=== PATIENT | female | born 1985 | race Caucasian/White ===

== ENCOUNTER 2018-09-17 05:15 | Inpatient (IN) | payer MEDICAID ==
[~2018-09-17] VITALS: Ht 157.5 cm; Wt 87.6 kg
[2018-09-17 05:30] VITALS: BP 111/64; PULSE 77; RESP 17
[2018-09-17 05:32] VITALS: Ht 157.5 cm; Wt 87.6 kg
[2018-09-17] MEDS ORDERED: PREN1TAB13 PO (05:34)
[2018-09-17] MEDS: LACTATED RINGER'S 1,000 ML IV SCH ×5 (08:36→21:50)
[2018-09-17] MEDS ORDERED: METHYLERGONOVINE 0.2 MG INJ IM PRN (10:30)
[2018-09-17] MEDS ORDERED: MISOPROSTOL 200 MCG TAB PR PRN (10:30)
[2018-09-17] MEDS ORDERED: OXYTOCIN 30 UNITS/LR 500 ML IV SCH ×2 (10:30)
[2018-09-17] MEDS ORDERED: LIDOCAINE 1% (MPF) 30 ML INJ INJ PRN (10:30)
[2018-09-17] MEDS ORDERED: BUTORPHANOL 1 MG INJ IV PRN (10:30)
[2018-09-17] MEDS ORDERED: CARBOPROST 250 MCG INJ IM PRN (10:30)
[2018-09-17] MEDS ORDERED: BUTORPHANOL 2 MG INJ IV PRN (10:30)
[2018-09-17] MEDS ORDERED: OXYTOCIN 30 UNITS/LR 500 ML IV PRN (10:30)
--- NOTE | 2018-09-17 14:43 | HP ---
Date/Time of Note Date/Time of Note DATE: 09/17/18 TIME: 14:39 OB - History Hx of Present Free Text/Dictation 33-year-old female 6 para 4 AB 1 and 39+ weeks gestation admitted complaining of onset of uterine contractions started last p.m. Denies rupture of membrane or vaginal bleeding Chief Complaint: Labor contractions Last Menstrual Period: Dec 15, 2017 Estimated Due Date: Sep 21, 2018 : 6 Para: 4 Spontaneous : 1 Care: Good Care Obstetrical Complications: None Medical Complications: None, Other (Previous section) Past Family/Social History * Past Medical, Surgical, Family and Obstetric Histories reviewed from chart. Blood Type: O+ Rubella: immune RPR/VDRL: Negative GBS Status: Negative HBsAG: Negative OB Admission Exam Vital Signs Vital Signs Vital Signs Date Temp Pulse Resp B/P (MAP) Pulse Ox O2 O2 Flow FiO2 Time Delivery Rate 09/17/18 97.9 77 17 111/64 Room Air 05:30 (80) Physical Exam HEENT: WNL Heart: Rhythm Normal Lungs: Clear, Equal Abdomen: WNL Extremities: Normal Reflexes: Normal Cervical Dilatation: 1cm Effacement: 50% Station: -3 Membranes: Intact Heart Rate: 140's Accelerations: Accelerations Present Decelerations: No Decelerations Varibility: Marked Contractions on Admission: < 5 Minutes Apart Date/Time Contractions Began: 09/16/2018 at 5 PM Frequency of Contractions: Every 5-10 minutes Duration: More than 30 seconds Intensity: Mild Last 72 hours Lab Results CBC & BMP 09/17/18 10:30 OB Assessment/Plan Other Assessment: Term gestation Previous section Labor pains Patient strongly desires vaginal delivery Other plan: Proceed with vaginal delivery after section Continue to observe patient very closely JUSTIN CAR MD Sep 17, 2018 14:43
[2018-09-18] MEDS: LACTATED RINGER'S 1,000 ML IV SCH ×3 (04:30→07:47)
--- NOTE | 2018-09-18 14:32 | DS ---
Date/Time of Note Date/Time of Note Patient had no cervical change for 2 days Has a strong desire for vaginal delivery after section Has history of previous vaginal deliveries Will follow patient on her EDC DATE: 09/18/18 TIME: 14:30 Obstetrical Discharge Record Final Diagnosis Final Diagnosis: Term not delivered Other Final Diagnosis Early labor Condition on Discharge Physical Assessment Last Vitals: See nurse's notes Voiding: Yes Bowel Movement: Yes Breast: Soft, non-tender, Filling Fundus: Other Abdomen and Incision: Abdomen is gravid fundal height is 36 Calf Tenderness: No Patient Condition: Good JUSTIN CAR MD Sep 18, 2018 14:32
== END 2018-09-18 15:37 | disposition home or self-care (01) | DRG 833 ==
LOC: OBT 05:15 → L-D 05:15 → OBT 09:58 → L-D 10:00
PROVIDERS: ADMIT Obstetrics & Gynecology; ATTEND Obstetrics & Gynecology
DX: O60.03 Preterm labor without delivery, third trimester (principal); Z3A.39 39 weeks gestation of pregnancy
CPT/HCPCS: 36415; 76818; 81001; 85025; 85610; 85730; 86592; 86850; 86900; 86901; 87340; 96360; G0463; J7120

== ENCOUNTER 2018-09-22 05:50 | Inpatient (IN) | payer MEDICAID ==
[~2018-09-22] VITALS: Ht 154.9 cm; Wt 87.4 kg
[~2018-09-22 05:50] MED LIST: PREN1TAB13 PO
[2018-09-22 06:12] VITALS: Ht 154.9 cm; Wt 87.4 kg
[2018-09-22 06:13] VITALS: BP 104/48; PULSE 115; RESP 16
[2018-09-22] MEDS ORDERED: OXYTOCIN 30 UNITS/LR 500 ML IV SCH ×2 (06:30)
[2018-09-22] MEDS ORDERED: BUTORPHANOL 2 MG INJ IV PRN (06:30)
[2018-09-22] MEDS ORDERED: LIDOCAINE 1% (MPF) 30 ML INJ INJ PRN (06:30)
[2018-09-22] MEDS ORDERED: METHYLERGONOVINE 0.2 MG INJ IM PRN ×2 (06:30→19:00)
[2018-09-22] MEDS ORDERED: MISOPROSTOL 200 MCG TAB PR PRN ×2 (06:30→19:00)
[2018-09-22] MEDS ORDERED: OXYTOCIN 30 UNITS/LR 500 ML IV PRN ×2 (06:30→19:00)
[2018-09-22] MEDS ORDERED: CARBOPROST 250 MCG INJ IM PRN ×2 (06:30→19:00)
[2018-09-22] MEDS: LACTATED RINGER'S 1,000 ML IV SCH ×4 (07:44→15:51)
--- NOTE | 2018-09-22 07:57 | PREAC ---
Date/Time of Note Date/Time of Note DATE: 09/22/18 TIME: 07:56 Anesthesia Eval and Record Evaluation Time Pre-Procedure Interview DATE: 09/22/18 TIME: 07:56 Age 33 Sex female NPO: 8 hrs Preoperative diagnosis labor pain Planned procedure epidural Past Medical History Past Medical History: Includes : Gestational age: (40.1) Surgery & Anesthesia Issues No known issue Meds Anticoagulation: No Beta Jessie within 24 hr: No Reason Beta Jessie not given: Pt. not on B-Jessie Reported Medications Pnv95/Ferrous Fumarate/FA ( Vitamins Tablet) 1 Each Tablet, 1 EACH PO, TAB 09/17/18 Current Medications Lactated Ringer's 1,000 ml @ 125 mls/hr Q8H IV Last administered on 09/22/18at 07:45; Admin Dose 125 MLS/HR; Start 09/22/18 at 06:14 Butorphanol Tartrate (Stadol) 2 mg Q2H PRN IV .PAIN; Start 09/22/18 at 06:30 Lidocaine (Xylocaine 1% (Mpf)) 30 ml ONCE PRN INJ .EPISIOTOMY; Start 09/22/18 at 06:30 Oxytocin/Lactated Ringer's 500 ml @ 500 mls/hr ONCE POST IV ; Start 09/22/18 at 06:30 Oxytocin/Lactated Ringer's 500 ml @ 125 mls/hr POST IV ; Start 09/22/18 at 06:30 Oxytocin/Lactated Ringer's 500 ml @ 0 mls/hr ONCE PRN IV .VAGINAL BLEEDING; Start 09/22/18 at 06:30 Methylergonovine Maleate (Methergine) 0.2 mg ONCE PRN IM .VAGINAL BLEEDING; Start 09/22/18 at 06:30 Carboprost Tromethamine (Hemabate) 250 mcg ONCE PRN IM .VAGINAL BLEEDING; Start 09/22/18 at 06:30 Misoprostol (Cytotec) 1,000 mcg ONCE PRN [place] .VAGINAL BLEEDING; Start 09/22/18 at 06:30 Mineral Oil (Muri-Lube) 2 ml ONCE ONCE TOP ; Start 09/22/18 at 08:00; Stop 09/22/18 at 08:01 Meds reviewed: Yes Allergies Coded Allergies: No Known Drug Allergy (Verified Allergy, Unknown, 09/17/18) Allergies Reviewed: Yes Labs/Studies Labs Reviewed: Reviewed by anesthesiologist Result Diagram: 09/22/18 0635 Laboratory Tests 09/22/18 06:35 Blood Bank Test 09/22/18 06:35 Antibody Screen NEGATIVE Blood Type O POSITIVE Rh Immune Globulin Candidate NO test: Positive Studies: ECG (n/a), CXR (n/a) Pre-procedure Exam Last vitals Vital Signs Date Temp Pulse Resp B/P (MAP) Pulse Ox O2 O2 Flow FiO2 Time Delivery Rate 09/22/18 97.3 115 16 104/48 Room Air 06:13 (66) Airway: Adequate mouth opening Mallampati: Mallampati I Teeth: Normal Lung: Normal Heart: Normal ASA Physical Status ASA physical status: 2 Emergency: None Planned Anesthetic Neuraxial: Epidural Pre-operative Attestations Prior to commencing anesthesia and surgery, the patient was re-evaluated, there was verification of: *The patient's identity *The results of appropriate recent lab work and preoperative vital signs *The above evaluation not changing prior to induction *Anesthetic plan, risk benefits, alternative and complications discussed with patient/family; questions answered; patient/family understands, accepts and wishes to proceed. TRENA WILEY MD Sep 22, 2018 07:57
[2018-09-22] MEDS ORDERED: MINERAL OIL LIGHT 10 ML VIAL TOP ONE (08:00)
[2018-09-22] MEDS ORDERED: FENTAnyl 2MCG/ML-ROPIV 0.2% 100 ML ONE (08:08)
[2018-09-22] MEDS ORDERED: ONDANSETRON 4 MG INJ IV PRN (09:00)
[2018-09-22] MEDS ORDERED: FENTAnyl 2MCG/ML-ROPIV 0.2% 100 ML BAG EPI SCH (09:00)
[2018-09-22] MEDS ORDERED: NALOXONE (0.4 MG/ML) INJ IV PRN (09:00)
--- NOTE | 2018-09-22 10:35 | PAC ---
Date/Time of Note Date/Time of Note DATE: 09/22/18 TIME: 10:35 Post-Anesthesia Notes Post-Anesthesia Note Last documented vital signs Vital Signs Date Temp Pulse Resp B/P (MAP) Pulse Ox O2 O2 Flow FiO2 Time Delivery Rate 09/22/18 97.3 115 16 104/48 99 Room Air 10:13 (66) Activity: WNL Respiratory function: WNL Cardiovascular function: WNL Mental status: Baseline Pain reasonably controlled: Yes Hydration appropriate: Yes Nausea/Vomiting absent: No TRENA WILEY MD Sep 22, 2018 10:35
[2018-09-22] MEDS ORDERED: IBUPROFEN 600 MG TAB PO PRN (14:00)
--- NOTE | 2018-09-22 15:45 | HP ---
Date/Time of Note Date/Time of Note DATE: 09/22/18 TIME: 15:41 OB - History Hx of Present Free Text/Dictation 33-year-old female 6 para 4 AB 1 at 40 weeks and 1 day gestation admitted complaining of onset of a labor pains started at 3:30 AM which were frequent and coming at least every 5 minutes Pain was described as tense Last Menstrual Period: Dec 15, 2018 Estimated Due Date: Sep 21, 2018 : 6 Para: 4 Spontaneous : 1 Care: Good Care Ultrasounds: Normal mid trimester US Obstetrical Complications: None Medical Complications: None, Other (Previous x1) Past Family/Social History * Past Medical, Surgical, Family and Obstetric Histories reviewed from chart. Blood Type: O+ Rubella: immune RPR/VDRL: Negative GBS Status: Negative HBsAG: Negative OB Admission Exam Vital Signs Vital Signs Vital Signs Date Temp Pulse Resp B/P (MAP) Pulse Ox O2 O2 Flow FiO2 Time Delivery Rate 09/22/18 97.3 115 16 104/48 Room Air 06:13 (66) Physical Exam HEENT: WNL Heart: Rhythm Normal Lungs: Clear, Equal Abdomen: WNL Extremities: Normal Reflexes: Normal Cervical Dilatation: 4cm Effacement: 100% Station: -3 Membranes: Intact Heart Rate: 140's Accelerations: Accelerations Present Decelerations: No Decelerations Varibility: Marked Contractions on Admission: < 5 Minutes Apart Date/Time Contractions Began: 09/22/2018 at 3:30 AM Frequency of Contractions: Every 5-minute Duration: Over 60 seconds Intensity: Firm Last 72 hours Lab Results CBC & BMP 09/22/18 06:35 Liver Function Test 09/22/18 06:35 Alanine Aminotransferase (ALT/SGPT) 27 Albumin 3.5 Alkaline Phosphatase 321 H Aspartate Amino Transf (AST/SGOT) 37 Direct Bilirubin 0.00 Total Protein 6.9 OB Assessment/Plan Reason for admission: active labor Other Assessment: Term gestation Previous x1 Labor contractions Other plan: Proceed with per patient request JUSTIN CAR MD Sep 22, 2018 15:45
--- NOTE | 2018-09-22 15:47 | LDN ---
Date/Time of Note Date/Time of Note DATE: 09/22/18 TIME: 15:45 Delivery Summary Normal spontaneous vaginal delivery of viable infant over intact perineum Weeks of Gestation 40 weeks and 1 day Placenta Delivered: Spontaneously, Intact & Complete Meconium: none Episiotomy: No Perineal laceration: 1 Laceration repair: First-degree perineal laceration was repaired in layers using 2-0 Vicryl stitch Anesthesia type: Epidural Estimated blood loss: 200 Sponge & Needle done & correct: Yes All needle counts correct: Yes Any foreign bodies felt in the: No Delivery Information Sex Sex: male Apgars 1 Minute: 9 5 Minute: 9 Suctioning Nose & mouth suctioned at flores: Yes Delee suction performed: No Umbilical Cord Umbilical cord with: 3 Vessels Cord presentations: no nuchal cord Cord Blood was obtained: Yes Mother & Baby Disposition Disposition Mom & Baby to Maternity; Good: Yes (Mother and baby were recovering in good condition) Mom transferred to: Other (Maternity) Baby to NICU: No JUSTIN CAR MD Sep 22, 2018 15:47
[2018-09-22] MEDS ORDERED: KETOROLAC 30 MG INJ IV STA (15:51)
[2018-09-22 17:15] VITALS: BP 131/61; PULSE 67; RESP 18
[2018-09-22] MEDS: IBUPROFEN 600 MG TAB PO SCH ×2 (18:52→23:54)
[2018-09-22] MEDS: CEPHALEXIN 500 MG CAP PO SCH ×2 (18:52→23:54)
[2018-09-22] MEDS: DIBUCAINE 1% 30 GM OINT TOP PRN (18:53)
[2018-09-22] MEDS ORDERED: ZOLPIDEM 5 MG TAB PO PRN (19:00)
[2018-09-22] MEDS ORDERED: BENZOCAINE 20% 56 ML SPRAY TOP PRN (19:00)
[2018-09-22] MEDS ORDERED: LANOLIN HPA 1 PKT TOP PRN (19:00)
[2018-09-22] MEDS ORDERED: HYDROCODONE/APAP (5/325) TAB PO PRN ×2 (19:00)
[2018-09-22] MEDS ORDERED: WITCH HAZEL/GLYCERIN PAD PR PRN (19:00)
[2018-09-22 20:00] VITALS: BP 116/61; PULSE 81; RESP 20
[2018-09-22] MEDS: LACTATED RINGER'S 1,000 ML IV* SCH (20:31)
[2018-09-22] MEDS: MAGNESIUM HYDROXIDE 30ML CUP PO SCH (21:51)
[2018-09-22] MEDS: SENNA/DOCUSATE NA (8.6MG/50MG) TAB PO SCH (21:51)
[2018-09-23] VITALS: BP 110/60; PULSE 80; RESP 18
[2018-09-23] MEDS: LACTATED RINGER'S 1,000 ML IV* SCH (02:34)
[2018-09-23 04:00] VITALS: BP 98/57; PULSE 75; RESP 18
[2018-09-23] MEDS: IBUPROFEN 600 MG TAB PO SCH ×4 (05:34→23:53)
[2018-09-23] MEDS: CEPHALEXIN 500 MG CAP PO SCH ×4 (05:34→23:53)
[2018-09-23 08:30] VITALS: BP 101/59; PULSE 65; RESP 18
[2018-09-23] MEDS: MAGNESIUM HYDROXIDE 30ML CUP PO SCH ×2 (08:46→21:00)
[2018-09-23] MEDS: SENNA/DOCUSATE NA (8.6MG/50MG) TAB PO SCH ×2 (08:46→23:08)
[2018-09-23] MEDS: DIBUCAINE 1% 30 GM OINT TOP PRN (08:46)
[2018-09-23 16:03] VITALS: BP 96/55; PULSE 88; RESP 18
--- NOTE | 2018-09-23 17:39 | DS ---
Date/Time of Note Date/Time of Note Home today or next day DATE: 09/23/18 TIME: 17:37 Obstetrical Discharge Record Final Diagnosis Final Diagnosis: Term delivered Other Final Diagnosis Status post vaginal delivery Vaginal Delivery Obstetrical Delivery: Spontaneous, Laceration, Repaired, Successful Complications Other (Previous x1) Condition on Discharge Physical Assessment Last Vitals: See nurse's notes Voiding: Yes Bowel Movement: Yes Breast: Soft, non-tender, Filling Fundus: Firm Abdomen and Incision: Abdomen is soft with present bowel sounds Fundus is firm Episiotomy: Perineum is healing well and appears clean Calf Tenderness: No Patient Condition: Good JUSTIN CAR MD Sep 23, 2018 17:39
--- NOTE | 2018-09-23 17:40 | PD.PPDC ---
MATERIALS INTERN Discharge Instruction Provider Information Physician Information 33-year-old female had vaginal delivery Diagnosis [id number] Final Diagnosis: Crhfe1c Status post vaginal delivery Condition [id number] Patient Condition: Pxfsh6e Good Diet Asvcr8Zd Diet: Gogav9x Resume Regular Diet Activity/Restrictions [id number] Activity: Hsaat2g Normal Activity May Shower Pleig2Hl Restrictions: Gsksg1s Nothing in the Vagina Cmudi1Cd Return to Work or School: Iikqd8s November 10, 2018 Follow-up Follow-up with Physician: 2, 4, Week/Weeks (In clinic) Return to clinic for Ojror5Db OB Instructions: [id number] Breast Tenderness Depression Comment: Pelvic rest for 6 weeks JUSTIN CAR MD Sep 23, 2018 17:40
[2018-09-23] MEDS ORDERED: IBUP-1542 PO (17:41)
[2018-09-23 20:00] VITALS: BP 95/56; PULSE 71; RESP 16
[2018-09-24 04:00] VITALS: BP 107/58; PULSE 70; RESP 18
[2018-09-24] MEDS: CEPHALEXIN 500 MG CAP PO SCH (06:08)
[2018-09-24] MEDS: IBUPROFEN 600 MG TAB PO SCH (06:09)
[2018-09-24 07:45] VITALS: BP 122/70; PULSE 73; RESP 18
[2018-09-24] MEDS ORDERED: DIPHTH/TET/ACEL PERTUSS (ADULT) 0.5 ML VIAL IM* ONE (09:00)
[2018-09-24] MEDS ORDERED: VARICELLA VACCINE LIVE/PF 1,350 UNIT/0.5 ML ML SC* ONE (09:00)
[2018-09-24] MEDS ORDERED: MEASLES,MUMPS,RUBELLA VACCINE INJ SC* ONE (09:00)
[2018-09-24] MEDS: SENNA/DOCUSATE NA (8.6MG/50MG) TAB PO SCH (09:11)
[2018-09-24] MEDS: MAGNESIUM HYDROXIDE 30ML CUP PO SCH (09:11)
--- NOTE | 2018-09-25 12:01 | DELSUM ---
Delivery Summary A-C Datetime Report Generated by CPN: 09/25/2018 12:01 DELIVERY PERSONNEL Tour Bus Driver: Badgett, Larissa MATERNAL INFORMATION Delivery Anesthesia: Epidural Medications in Delivery: pitocin Delivery QBL (ml): 200 Placenta Cultured: No Maternal Complications: Other RN Comments: , 3x and then only one c/s 9 yrs ago. 34 yrs ago, post dates, LABOR SUMMARY EDC: 09/21/2018 00:00 No. Babies in Womb: 1 Attempted: Yes Labor Anesthesia: Epidural LABOR INFORMATION Reason for Induction: Not Applicable Onset of Labor: 09/22/2018 03:00 Complete Dilatation: 09/22/2018 15:00 Oxytocin: N/A Group B Beta Strep: Negative Antibiotics # of Doses: 0 Steroids Given: None Reason Steroids Not Administered: Not Applicable MEMBRANES Membranes Rupture Method: Artificial Rupture of Membranes: 09/22/2018 15:25 Length of Rupture (hr): 0.05 Amniotic Fluid Color: Clear Amniotic Fluid Amount: Moderate Amniotic Fluid Odor: Normal STAGES OF LABOR Stage 1 hr: 12 Stage 1 min: 0 Stage 2 hr: 0 Stage 2 min: 28 Stage 3 hr: 0 Stage 3 min: 2 Total Time in Labor hr: 12 Total Time in Labor min: 30 VAGINAL DELIVERY Episiotomy: None Laceration Extension: First Degree Laceration Type: Perineal Initial Vag Sponge Count: 10 Final Vag Sponge Count: 10 Initial Vag Sharps Count: 2 Final Vag Sharps Count: 2 Sponge Count Correct: Yes Sharps Count Correct: Yes BABY A INFORMATION Delivery Date/Time: 09/22/2018 15:28 Method of Delivery: Vaginal Born in Route : No : Successful Forceps: N/A Vacuum Extraction: N/A Shoulder Dystocia : No SHOULDER DYSTOCIA BABY A Delivery Date/Time: 09/22/2018 15:28 PRESENTATION/POSITION BABY A Presentation: Cephalic Cephalic Presentation: Vertex Vertex Position: Left Occipital Anterior Breech Presentation: N/A PLACENTA INFORMATION BABY A Placenta Delivery Time : 09/22/2018 15:30 Placenta Method of Delivery: Spontaneous Placenta Status: Delivered SCORES BABY A Heart Rate 1 min: >100 bpm Resp Effort 1 min: Good Cry Reflex Irritability 1 min: Cough/Sneeze/Pulls Away Muscle Tone 1 min: Active Motion Color 1 min: Body [place], Extremit Blue Resuscitation Effort 1 min: Tactile Stimulation; Oxygen SCORE 1 MIN: 9 Heart Rate 5 min: >100 bpm Resp Effort 5 min: Good Cry Reflex Irritability 5 min: Cough/Sneeze/Pulls Away Muscle Tone 5 min: Active Motion Color 5 min: Body [place], Extremit Blue Resuscitation Effort 5 min: Tactile Stimulation; Oxygen SCORE 5 MIN: 9 INFORMATION BABY A Gestational Age at Delivery: 39.3 Gestational Status: Full Term- 39- 40.6 Weeks Infant Outcome : Liveborn Condition : Stable Infant Sex: Male IDENTIFICATION/MEDS BABY A ID Band Number: [id number] ID Band Location: Right Leg; Left Arm Sensor Applied: Yes Sensor Number: [id number] Sensor Location : Cord Clamp Vitamin K Given : Not Given Erythromycin Given: Not Given WEIGHT/LENGTH BABY A Birthweight (gm): 3860 Weight (lb): 8 Weight (oz): 8 Length (in): 20.50 Length (cm): 52.07 CORD INFORMATION BABY A No. Cord Vessels: 3 Nuchal Cord : N/A Cord Blood Taken: Yes (Annotations: Data stored by [facility] on behalf of user) Suction: Mouth; Nose ASSESSMENT BABY A Complications- Other: post dates, , 33yr old mom,
== END 2018-09-24 11:25 | disposition home or self-care (01) | DRG 807 ==
LOC: OBT 05:50 → L-D 05:50 → OBT 06:09 → L-D 06:09 → PP1 17:15
PROVIDERS: ADMIT Obstetrics & Gynecology; ATTEND Obstetrics & Gynecology
PROC: 10E0XZZ Delivery of Products of Conception, External Approach (ICD-10-PCS; principal; 2018-09-22)
PROC: 0HQ9XZZ Repair Perineum Skin, External Approach (ICD-10-PCS; 2018-09-22)
PROC: 4A1HXCZ Monitoring of Products of Conception, Cardiac Rate, External Approach (ICD-10-PCS; 2018-09-22)
DX: O48.0 Post-term pregnancy (principal); Z37.0 Single live birth; Z3A.40 40 weeks gestation of pregnancy; O34.219 Maternal care for unspecified type scar from previous cesarean delivery; O70.0 First degree perineal laceration during delivery
CPT/HCPCS: 76815; 76818; 80076; 81001; 85025; 85610; 85730; 86592; 86850; 86900; 86901; 87340; 90716; G0463; J2590; J3010; J7120